=== PATIENT | female | born 1995 | race Caucasian/White ===

== ENCOUNTER 2024-04-04 10:14 | Emergency (ER) | payer OTHER ==
[~2024-04-04] VITALS: Ht 165.1 cm; Wt 76.0 kg
[2024-04-04 10:28] VITALS: BP 108/60; PULSE 90; RESP 19; TEMP 98; O2SAT 99
[2024-04-04] MEDS: LIDOCAINE MPF 1% 10 MG/ML VIAL INJ ONE (11:08)
[2024-04-04] MEDS ORDERED: CEPH-588 PO (11:21)
[2024-04-04] MEDS ORDERED: NAPR-1704 PO (11:21)
[2024-04-04] MEDS ORDERED: ACET-8905 PO (11:21)
== END 2024-04-04 11:29 | disposition home or self-care (01) ==
LOC: MED 10:14
DX: L02.31 Cutaneous abscess of buttock (principal); R50.9 Fever, unspecified; R11.0 Nausea; M79.10 Myalgia, unspecified site; Z79.1 Long term (current) use of non-steroidal anti-inflammatories (NSAID); Z79.2 Long term (current) use of antibiotics; Z98.890 Other specified postprocedural states
CPT/HCPCS: 10060; 99284; J2001

== ENCOUNTER 2024-04-06 16:20 | Emergency (ER) | payer OTHER ==
[~2024-04-06] VITALS: Ht 165.1 cm; Wt 75.7 kg
[~2024-04-06 16:20] MED LIST: ACET-8905 PO; CEPH-588 PO; NAPR-1704 PO
[2024-04-06 16:26] VITALS: BP 111/52; PULSE 80; RESP 16; TEMP 97.7; O2SAT 97
[2024-04-06 17:27] VITALS: BP 112/62; PULSE 88; RESP 16; TEMP 98; O2SAT 99
== END 2024-04-06 17:26 | disposition home or self-care (01) ==
LOC: MED 16:20
DX: L02.31 Cutaneous abscess of buttock (principal); Z48.01 Encounter for change or removal of surgical wound dressing; Z98.890 Other specified postprocedural states; Z79.899 Other long term (current) drug therapy
CPT/HCPCS: 99281